=== PATIENT | female | born 1955 | race Caucasian/White ===

== ENCOUNTER 2025-04-21 07:29 | Emergency (ER) | payer MEDICARE, OTHER ==
[2025-04-21] MEDS ORDERED: Ketorolac Tromethamine 30 MG (1 mL) VIAL ONE (08:05)
[2025-04-21 09:02] LABS: #Basophils 0.1 thou/uL (0.0-0.2); #Eosinophils 0.0 thou/uL (0.0-0.7); #Lymphocytes 1.2 thou/uL (1.20-3.40); #Monocytes 1.3 thou/uL (0.11-0.59); #Neutrophils 16.9 thou/uL (1.40-6.50); %Basophils 0.7 % (0.0-1.0); %Eosinophils 0.0 % (0.0-10.0); %Lymphocytes 5.9 % (21.0-51.0); %Monocytes 6.8 % (0.0-10.0); %Neutrophils 86.6 % (42.0-75.0); Hematocrit 44.0 % (36.0-47.0); Hemoglobin 14.5 g/dL (12.0-16.0); Mean Corpuscular Hemoglobin 29.9 pg (27.0-31.0); Mean Corpuscular Volume 90.5 fl (78.0-98.0); Platelet Count 282 10x3/uL (130-400); Red Blood Cell (RBC) Count 4.86 mill/uL (4.20-5.40); White Blood Cell (WBC) Count 19.5 10x3/uL (4.8-10.8)
[2025-04-21 09:21] LABS: ALT (SGPT) 16 U/L (Less than 34); AST (SGOT) 46 U/L (11-34); Albumin 3.6 g/dL (3.1-4.5); Alkaline Phosphatase 100 U/L (40-110); Anion Gap 19 mmol/L (10-20); BUN (Urea Nitrogen) 25 mg/dL (9.8-20.1); Bilirubin, Total 0.5 mg/dL (0.3-1.2); Calc. Creatinine Clearance 0 mL/min (70-130); Calcium 9.9 mg/dL (7.8-10.44); Carbon Dioxide 23 mmol/L (23-31); Chloride 99 mmol/L (98-107); Globulin 3.6 g/dL (2.4-3.5); Glucose 153 mg/dL (83-110); Potassium 3.6 mmol/L (3.5-5.1); Sodium 137 mmol/L (136-145)
[2025-04-21 09:38] LABS: Troponin I 3.479 ng/mL (< 0.028)
[2025-04-21] MEDS ORDERED: Aspirin Chewable 81 MG TAB ONE (09:42)
[2025-04-21] MEDS ORDERED: Enoxaparin 100 MG (1 mL) SYRINGE ONE (09:52)
[2025-04-21] MEDS ORDERED: Nitroglycerin 2% Ointment 1 INCH/1 GM Packet ONE (10:38)
[2025-04-21] MEDS ORDERED: Iopamidol 370 76% 100 ML VIAL ONE (13:57)
== END 2025-04-21 12:15 | disposition short-term general hospital (02) ==
LOC: BURERS 07:29
DX: I21.4 Non-ST elevation (NSTEMI) myocardial infarction (principal); Z79.82 Long term (current) use of aspirin; Z79.899 Other long term (current) drug therapy
CPT/HCPCS: 71045; 71260; 80053; 83880; 84484; 85025; 93005; 96372; J1650; J1885; Q9967